=== PATIENT | female | born 1945 | race Caucasian/White ===

== ENCOUNTER 2024-05-11 17:30 | Observation (INO) ==
[2024-05-11 18:15] LABS: Basophils #(Absolute) Auto 0.1 (0.0-0.1); Basophils%(Percent) Auto 0.9 (0.1-0.85); Eosinophils#(Absolute)Auto 0.1 (0.0-0.2); Eosinophils%(Percent) Auto 0.9 % (0.4-2.8); Granulocytes % - Auto 59.9 % (47.8-71.3); Granulocytes#(Absolute)- Auto 3.6 (2.3-6.0); Hematocrit 35.7 % (35.9-46.7); Mean Corpuscular Volume 86.6 fl (81.0-93.7); Monocytes #(Absolute)- Auto 0.4 (1.1-3.1); Monocytes %(Percent)- Auto 5.8 % (3.6-9.8); Platelet Count 200 K/uL (152-353); White Blood Count 6.1 K/uL (4.3-9.3)
--- NOTE | 2024-05-11 18:17 | Emergency Department Note ---
HPI - Neuro Symptoms/Deficit General Chief Complaint: General Complaint Stated Complaint: slurry speech, mouth drooping Time Seen by Provider: 05/11/24 18:12 Source: patient and family Mode of arrival: walk-in Limitations: no limitations History of Present Illness HPI Narrative: 78 y/o CF presents to the ED tonight, accompanied by her director design's and spouse, with c/o sudden onset of slurred speech and drooping of L side of mouth. Symptoms were noted by her when they were at [facility]. Symptoms reportedly lasted ~ 2 minutes and had resolved CORPORATE DEVELOPMENT ANALYST to ED. Pt reports no current symptoms. Onset (ago): minute(s) (10 min CORPORATE DEVELOPMENT ANALYST) Time: 17:25 Last Observed Normal: 17:25 Timing confirmed by: Reports spouse Location: Reports speech and left face History of same: Yes (1 episode s/p CABG 1 year ago, described as ataxic gait; CT head was neg) Severity: mild Quality: Reports weak and other (slurred speech, last 2 minutes) Relieving factors: Reports none Exacerbating factors: Reports none Context: Reports sudden onset On Anticoagulants: No (81mg ASA daily) Associated symptoms: Reports denies other symptoms Treatments Prior to Arrival: Reports none Related Data Home Medications Medication Instructions Recorded Confirmed atorvastatin 40 mg tablet 40 mg PO DAILY 05/11/24 05/11/24 duloxetine 30 mg capsule,delayed 30 mg PO DAILY 05/11/24 05/11/24 release duloxetine 60 mg capsule,delayed 60 mg PO DAILY 05/11/24 05/11/24 release isosorbide mononitrate 30 mg 30 mg PO DAILY 05/11/24 05/11/24 tablet,extended release 24 hr levothyroxine 100 mcg tablet 100 mcg PO DAILY 05/11/24 05/11/24 (Synthroid) meloxicam 7.5 mg tablet 7.5 mg PO DAILY 05/11/24 05/11/24 metoprolol succinate 25 mg 25 mg PO BID 05/11/24 05/11/24 tablet,extended release 24 hr ropinirole 4 mg tablet 4 mg PO BID 05/11/24 05/11/24 valsartan 160 mg tablet 160 mg PO DAILY 05/11/24 05/11/24 Allergies Allergy/AdvReac Type Severity Reaction Status Date / Time No Known Drug Allergies Allergy Verified 05/11/24 17:44 Review of Systems Status of ROS 10 or more systems reviewed and unremark able except as noted in history and below Constitutional Denies: fever, chills or fatigue Eyes Denies: change in vision, blurry vision, blind spots, light sensitivity, eye discomfort, eye discharge or seeing flashes Ears, nose, mouth, and throat Denies: throat pain, neck pain, throat swelling, difficulty swallowing, hoarseness, swelling of lips/tongue, dry mouth, ear pain or nasal congestion Cardiovascular Denies: chest pain, palpitations, edema, swelling of feet/ankles or lightheadedness Respiratory Denies: shortness of breath, cough, wheezing, pain on inspiration or chest congestion Gastrointestinal Reports: other (denies dark, tarry stool); Denies: abdominal pain, nausea, vomiting, diarrhea, constipation, change in bowel habits or change in stool character Genitourinary Denies: painful urination, urinary frequency, urinary urgency, urinary incontinence, blood in urine, difficulty voiding, decreased urine ouput or vaginal discharge Musculoskeletal Denies: back pain, neck pain, extremity pain, extremity swelling, joint pain or limited range of motion Integumentary/Breast Denies: rash, itching, changes in skin color or jaundice Neurological Reports: numbness in extremities (L arm), slurred speech, difficulty communicating thoughts and other (facial droop); Denies: headache, weakness in extremities, lack of coordination, dizziness, behavioral changes or seizure-like activity Psychiatric Denies: anxiety or difficulty concentrating Endocrine Denies: excessive urination, excessive thirst or fatigue Hematologic/Lymphatic Denies: easy bruising or easy bleeding Allergic/Immunologic Denies: hives, throat swelling, tongue swelling or facial swelling PFSH [facility] Medical History Thyroid disease HTN (hypertension) CAD (coronary artery disease) Surgical History (Updated 05/11/24 @ 19:42 by Alejandra Cherry APRN) History of hysterectomy Hx of CABG Social History (Updated 05/11/24 @ 19:42 by Alejandra Cherry APRN) Smoking status: never smoker Within the past year, how often did you have a drink containing alcohol: never Score interpretation: A score less than 3 is consistent with normal alcohol consumption. Non-prescribed substance use: denies use Exam Constitutional: normal general appearance, no apparent distress, abnormal body habitus (overweight), no limitations and alert Vital Signs - 24 hr 05/11/24 17:36 Temperature 98.5 F Pulse Rate 85 Respiratory Rate 20 Blood Pressure 119/80 Pulse Oximetry 99 Oxygen Delivery Me thod Room Air HENMT: normocephalic, head/scalp atraumatic, hearing grossly normal bilaterally, external ears normal, TMs normal bilaterally, nasal mucous membranes normal, external nose normal, oral mucous membranes abnormal (dry), oropharynx normal and dentition normal Eyes: PERRL, EOMs intact bilaterally, conjunctivae normal, no scleral icterus, normal visual [place] by confrontation, alignment normal, periorbital findings normal and no nystagmus Neck/C-Spine: visual inspection normal, trachea midline, cervical spine nontender, cervical full ROM noted, supple, no meningeal signs and no carotid bruits Lymph: no lymphadenopathy noted Chest: inspection of chest normal and palpation of chest normal Respiratory: breath sounds equal bilaterally, normal respiratory effort, clear to auscultation bilaterally, no wheezes, no rales and no use of accessory muscles Cardiovascular: normal heart rate noted, regular rhythm noted, no gallop, no murmur and peripheral pulses 2+ throughout Gastrointestinal: abdomen normal to inspection, abdomen soft to palpation, nontender to palpation, nondistended, normoactive bowel sounds, no hepatosplenomegaly and no masses Genitourinary: no CVA tenderness and bladder normal to palpation Back/Pelvis: spine normal to inspection, no thoracic spine tenderness, no lumbar spine tenderness, thoracic spine ROM normal, lumbar spine ROM normal and straight leg raise negative bilaterally Extremities: normal to inspection, normal to palpation, no tenderness, full ROM and no deformity Neurology: rivet driver II-XII intact, no movement abnormality noted, no focal motor deficit noted, no sensory deficits noted, deep tendon reflexes 2+ bilaterally, gait normal, speech normal, coordination normal, no pronator drift noted, no fasciculations noted and GCS normal Psychiatry: mental status grossly normal, oriented x3, thought process normal, cooperative and affect normal Skin: skin color normal, no rash, no lesions, no ecchymosis noted, no wounds, no lacerations, skin turgor normal and no jaundice Course Vital Signs Vital signs: Vital Signs Temperature 98.5 F 05/11/24 17:36 Pulse Rate 85 05/11/24 17:36 Respiratory Rate 20 05/11/24 17:36 Blood Pressure 119/80 05/11/24 17:36 Pulse Oximetry 99 05/11/24 17:36 Oxygen Delivery Method Room Air 05/11/24 17:36 Temperature 98.5 F 05/11/24 17:36 Pulse Rate 85 05/11/24 17:36 Respiratory Rate 20 05/11/24 17:36 Blood Pressure 119/80 05/11/24 17:36 Pulse Oximetry 99 05/11/24 17:36 Oxygen Delivery Method Room Air 05/11/24 17:36 MDM - Neuro Symptoms/Deficit MDM Narrative Medical decision making narrative: Labs are noted to be essentially unremarkable except for patient does have a UTI and is slightly dehydrated. Patient with 1 episode of slurred speech and left- sided facial drooping that lasted approximately 2 minutes and occurred approximately 10 minutes prior to arrival and a second episode of left arm paresthesia from shoulder down to fingertips that began at approximately 1908 and resolved about 193, lasting a total of 23 minutes. During second episode, nurse attempting to REACH patient when her symptoms resolved. Case discussed with Dr. Scott (neurology with REACH) who recommends admission, Lipitor 80 mg daily, ASA 81mg daily, MRI/MRA brain and bilateral carotid doppler ultrasound. Will admit for TIA. I have discussed the clinical case, including pertinent p ositives and negatives with Tana (JADA), and the need for further testing/observation in the inpatient arena. I have made the patient and family aware of the current disposition plan and they are in agreement. Differential Diagnosis Differential diagnosis: Likely carpal tunnel syndrome, convulsions, delirium, subarachnoid hemorrhage, peripheral neuropathy, cerebrovascular accident, multiple sclerosis, transient cerebral ischemia and other (dementia, sepsis) Medical Records Attestation: I reviewed the patient's medical records. Lab Data Attestation: I reviewed the patient's lab results. Labs: Lab Results 05/11/24 05/11/24 Range/Units 18:05 19:05 WBC 6.1 (4.3-9.3) K/uL RBC 4.1 (4.00-5.50) M/uL Hgb 12.0 L (12.5-15.8) gm/dL Hct 35.7 L (35.9-46.7) % MCV 86.6 (81.0-93.7) fl MCH 29.1 (27.6-32.2) pg MCHC 33.6 (33.1-35.3) g/dl RDW 14.1 (11.4-14.2) % Plt Count 200 (152-353) K/uL MPV 8.2 (6.9-10.8) fl Gran % 59.9 (47.8-71.3) % Lymph % (Auto) 32.5 (20.0-43.0) % Emery % (Auto) 5.8 (3.6-9.8) % Eos % (Auto) 0.9 (0.4-2.8) % Baso % (Auto) 0.9 H (0.1-0.85) Lymph # (Auto) 2.0 (1.1-3.1) Emery # (Auto) 0.4 L (1.1-3.1) Eos # (Auto) 0.1 (0.0-0.2) Baso # (Auto) 0.1 (0.0-0.1) Absolute Gran (auto) 3.6 (2.3-6.0) Sodium 140 (136-145) mmol/L Potassium 4.3 (3.6-5.2) mmol/L Chloride 100.0 (98-107) mmol/L Carbon Dioxide 29 (21-32) mmol/L Anion Gap 11.0 (4-14) mEq/L BUN 24 H (7-18) mg/dL Creatinine 0.8 (0.6-1.3) mg/dL Estimated GFR 76.3 (>59.9) Glucose 84 (70-110) mg/dL Calcium 9.0 (8.5-10.1) mg/dL Total Bilirubin 0.72 (0.0-1.0) mg/dL AST 22 (15-37) U/L ALT 26 L (30-65) U/L Alkaline Phosphatase 183 H (50-136) U/L Total Protein 7.5 (6.4-8.2) g/dL Albumin 4.0 (3.4-5.0) g/dL Urine Color Yellow (STRAW/YELL.) Urine Appearance Clear (CLEAR) Ur Specific [place] 1.010 (1.001-1.035) Urine Protein Negative (NEGATIVE) Urine Glucose (UA) Normal (NORMAL) Urine Ketones Negative (NEGATIVE) Urine Occult Blood Negative (NEG - TRACE) Urine Nitrite Negative (NEGATIVE) Urine Bilirubin Negative (NEGATIVE) Urine Urobilinogen Normal (NORMAL) Ur Leukocyte Esterase Positive (NEGATIVE) Fluid pH 7.0 (5 - 9) Imaging Data Imaging ordered: CT scan - head (without contrast) Attestation: I have reviewed the pertinent imaging results. Radiologist's impression: EXAM: CT HEAD/BRAIN WO CON HISTORY: SLURRED SPEECH, FACIAL DROOPING BOTH RESOLVEDSLURRED SPEECH, FACIAL DROOPING BOTH RESOLVED; CV/NB COMPARISON: None. TECHNIQUE: Axial non-contrast images of the head were obtained with coronal and sagittal reformats provided. Radiation dose: 1099.8 mGy-cm total DLP FINDINGS: No abnormal areas of acute attenuation in the brain parenchyma. Encephalomalacia in the left cerebellar hemisphere. Akbar-white differentiation remains intact. No intracranial, extra-axial, fluid collection. No hemorrhage. Periventricular chronic microvascular disease. No mass, mass effect or midline shift. Age related brain parenchymal global atrophy. No ventriculomegaly. No acute fracture. Sinuses are well aerated. Mastoid air cells are well aerated. Globes and intra-orbital contents are unremarkable. IMPRESSION: No acute intracranial abnormality identified. THIS IS AN ELECTRONICALLY VERIFIED FINAL REPORT 05/11/2024 6:10 PM - Electronically signed by Christian Ruff MD ECG Data ECG interpretation date: 05/11/24 ECG interpretation time: 17:50 Prior ECG tracings: not available for review Interpretation: Normal sinus rhythm Rate 81 Multiple PVCs and PAC's Normal QRS Normal ST-T waves Borderline prolonged QT interval Critical Care Time Critical Care Time Critical Care Time: Yes Total Critical Care Time: 50 Attestation: continuous cardiac monitoring, and neuro checks. Attempted to REACH pt when symptoms resolved. Neuro consult with Dr Scott. Consult with UR. Admission orders entered. Discharge Plan Discharge Patient Disposition: Admitted As Observation Condition: Stable Clinical Impression: TIA (transient ischemic attack), Paresthesia of left arm, Slurred speech, Facial droop, Acute dehydration Time of Disposition: 19:38
[2024-05-11 18:40] LABS: Potassium 4.3 mmol/L (3.6-5.2)
[2024-05-11 20:06] LABS: Urine Appearance CLEAR (CLEAR); Urine Blood NEGATIVE (NEG - TRACE); Urine Color YELLOW (STRAW/YELL.); Urine Urobilinogen Normal (NORMAL)
[2024-05-11 20:18] LABS: Urine Amorphous Sediment Negative (Negative); Urine Yeast Negative (Negative)
[2024-05-11] MEDS ORDERED: ACETAMINOPHEN 325 MG TABLET PO PRN (21:31)
[2024-05-11] MEDS ORDERED: ONDANSETRON HCL/PF 4 MG/2 ML VIAL INJ PRN (21:31)
[2024-05-11] MEDS: cephALEXin 500 MG CAPSULE PO SCH (22:21)
[2024-05-11] MEDS: ATORVASTATIN CALCIUM 40 MG TABLET PO SCH (22:21)
[2024-05-11] MEDS: METOPROLOL SUCCINATE 25 MG TAB.ER.24H PO SCH (22:21)
[2024-05-11] MEDS: IBUPROFEN 400 MG TABLET PO PRN (22:40)
[2024-05-11] MEDS: 0.9 % SODIUM CHLORIDE 500 ML IV SCH (23:05)
[2024-05-11] MEDS: 0.9 % SODIUM CHLORIDE 1000 ML 1,000 ML IV SCH (23:06)
[2024-05-11] MEDS: VALSARTAN 160 MG PO SCH (23:06)
[2024-05-12 04:43] LABS: Basophils%(Percent) Auto 0.8 (0.1-0.85); Eosinophils%(Percent) Auto 0.7 % (0.4-2.8); Granulocytes % - Auto 54.5 % (47.8-71.3); Granulocytes#(Absolute)- Auto 3.3 (2.3-6.0); Hematocrit 31.1 % (35.9-46.7); Mean Corpuscular Volume 85.6 fl (81.0-93.7); Monocytes #(Absolute)- Auto 0.4 (1.1-3.1); Monocytes %(Percent)- Auto 6.4 % (3.6-9.8); Platelet Count 178 K/uL (152-353); White Blood Count 6.1 K/uL (4.3-9.3)
[2024-05-12] MEDS: LEVOTHYROXINE SODIUM 100 MCG TABLET PO SCH (09:12)
[2024-05-12] MEDS: ASPIRIN 81 MG TAB.CHEW PO SCH (09:12)
[2024-05-12] MEDS: LOSARTAN POTASSIUM 50 MG TABLET PO SCH (09:12)
[2024-05-12] MEDS: ISOSORBIDE MONONITRATE 30 MG TAB.ER.24H PO SCH (09:12)
[2024-05-12] MEDS: ENOXAPARIN SODIUM 100 MG/ML SYRINGE SUBQ SCH (10:33)
[2024-05-12] MEDS: PANTOPRAZOLE SODIUM 40 MG TABLET.DR PO SCH (10:34)
[2024-05-12] MEDS: CLOPIDOGREL BISULFATE 75 MG TABLET PO SCH (15:49)
[2024-05-12] MEDS: carvediloL 6.25 MG TABLET PO SCH (21:13)
[2024-05-13 04:36] LABS: Basophils%(Percent) Auto 0.7 (0.1-0.85); Eosinophils#(Absolute)Auto 0.1 (0.0-0.2); Eosinophils%(Percent) Auto 1.3 % (0.4-2.8); Granulocytes % - Auto 51.6 % (47.8-71.3); Granulocytes#(Absolute)- Auto 2.6 (2.3-6.0); Hematocrit 33.6 % (35.9-46.7); Mean Corpuscular Volume 85.4 fl (81.0-93.7); Monocytes #(Absolute)- Auto 0.3 (1.1-3.1); Monocytes %(Percent)- Auto 6.7 % (3.6-9.8); Platelet Count 165 K/uL (152-353); White Blood Count 5.1 K/uL (4.3-9.3)
[2024-05-13 05:41] LABS: Potassium 4.1 mmol/L (3.6-5.2)
[2024-05-13 08:17] VITALS: RESP 19
[2024-05-13] MEDS: CHOLECALCIFEROL 1,000 UNITS TABLET (25 MCG) PO SCH (09:21)
[2024-05-13] MEDS: GLIMEPIRIDE 2 MG TABLET PO SCH (09:21)
[2024-05-13] MEDS: ASPIRIN 81 MG TABLET.DR PO SCH (09:22)
--- NOTE | 2024-05-13 10:11 | History & Physical Report ---
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 Symptoms were noted by her when they were at [employer]. Symptoms reportedly lasted ~ 2 minutes and had resolved [employer] to ED. Pt reports no current symptoms. Patient was admitted to med/surg for observation and treatment. Review of Systems Status of ROS 10 or more systems reviewed and unremark able except as noted in history and below Constitutional Denies: fever, chills or fatigue Eyes Denies: change in vision, blurry vision, blind spots, light sensitivity, eye discomfort, eye discharge or seeing flashes Ears, nose, mouth, and throat Denies: throat pain, neck pain, throat swelling, difficulty swallowing, hoarseness, swelling of lips/tongue, dry mouth, ear pain or nasal congestion Cardiovascular Denies: chest pain, palpitations, edema, swelling of feet/ankles, lightheadedness or shortness of breath with exertion Respiratory Denies: shortness of breath, cough, wheezing, pain on inspiration or chest congestion Gastrointestinal Reports: other (denies dark, tarry stool); Denies: abdominal pain, nausea, vomiting, diarrhea, constipation, difficulty swallowing, change in bowel habits or change in stool character Genitourinary Denies: painful urination, urinary frequency, urinary urgency, urinary incontinence, blood in urine, difficulty voiding, decreased urine ouput or vaginal discharge Musculoskeletal Denies: back pain, neck pain, extremity pain, extremity swelling, joint pain or limited range of motion Integumentary/Breast Denies: rash, itching, changes in skin color or jaundice Neurological Reports: numbness in extremities (L arm), slurred speech, difficulty communicating thoughts and other (facial droop); Denies: headache, weakness in extremities, lack of coordination, dizziness, behavioral changes or seizure-like activity Psychiatric Denies: anxiety or difficulty concentrating Endocrine Denies: excessive urination, excessive thirst or fatigue Hematologic/Lymphatic Denies: easy bruising or easy bleeding Allergic/Immunologic Denies: hives, throat swelling, tongue swelling, facial swelling or wheezing [facility] Medical History (Updated 05/13/24 @ 11:09 by Monika Rosenthal DO) Restless leg Diabetes type 2 with atherosclerosis of arteries of extremities Thyroid disease HTN (hypertension) CAD (coronary artery disease) Surgical History (Updated 05/11/24 @ 19:42 by Alejandra Cherry APRN) History of hysterectomy Hx of CABG Social History (Updated 05/11/24 @ 19:42 by Alejandra Cherry APRN) Smoking status: never smoker Within the past year, how often did you have a drink containing alcohol: never Score interpretation: A score less than 3 is consistent with normal alcohol consumption. Non-prescribed substance use: denies use Problems where you live: no known problems Highest level of school completed/degree received: College Meds Home Medications and Allergies Home Medications Medication Instructions Recorded Confirmed Type atorvastatin 40 mg tablet 40 mg PO DAILY 05/11/24 05/11/24 History duloxetine 30 mg capsule,delayed 30 mg PO DAILY 05/11/24 05/11/24 History release duloxetine 60 mg capsule,delayed 60 mg PO DAILY 05/11/24 05/11/24 History release isosorbide mononitrate 30 mg 30 mg PO DAILY 05/11/24 05/11/24 History tablet,extended release 24 hr levothyroxine 100 mcg tablet 100 mcg PO DAILY 05/11/24 05/11/24 History (Synthroid) meloxicam 7.5 mg tablet 7.5 mg PO DAILY 05/11/24 05/11/24 History ropinirole 4 mg tablet 4 mg PO BID 05/11/24 05/11/24 History valsartan 160 mg tablet 240 mg PO DAILY 05/11/24 05/12/24 History aspirin 81 mg capsule 81 mg PO DAILY 05/12/24 05/12/24 History carvedilol 12.5 mg tablet 12.5 mg PO Q12H 05/12/24 05/12/24 History cholecalciferol (vitamin D3) 25 25 mcg PO DAILY 05/12/24 05/12/24 History mcg (1,000 unit) capsule (Vitamin D3) coenzyme Q10 10 mg capsule (Co 10 mg PO DAILY 05/12/24 05/12/24 History Q-10) glimepiride 4 mg tablet 4 mg PO DAILY 05/12/24 05/12/24 History vit C 250 mg-vit E 200 unit-zinc 2 cap PO DAILY 05/12/24 05/12/24 History ox 12.5 qj-gkmiom-nvapit-zeax capsule cephalexin 500 mg capsule 500 mg PO BID uti #8 caps 05/13/24 Rx Allergies Allergy/AdvReac Type Severity Reaction Status Date / Time No Known Drug Allergies Allergy Verified 05/11/24 17:44 Exam Exam: Patient laying in Pelaez's position upon entering room for exam. Constitutional: normal general appearance, no apparent distress, abnormal body habitus (overweight), no limitations and alert Vital Signs - 24 hr 05/11/24 17:36 05/11/24 17:48 05/11/24 18:15 Temperature 98.5 F Pulse Rate 85 82 78 Pulse Rate [Bilate ral] Respiratory Rate 20 20 21 Blood Pressure 119/80 167/50 141/66 Blood Pressure [Le ft Radial Artery] Pulse Oximetry 99 96 [facility] 05/11/24 18:30 05/11/24 18:45 05/11/24 19:00 Temperature Pulse Rate 81 78 74 Pulse Rate [Bilate ral] Respiratory Rate 20 19 20 Blood Pressure 147/70 148/63 158/58 Blood Pressure [[place] ft Radial Artery] Pulse Oximetry 99 99 99 [facility] Room Air 05/11/24 19:15 05/11/24 19:30 05/11/24 19:45 Temperature Pulse Rate 79 82 76 Pulse Rate [Bilate ral] Respiratory Rate 20 18 19 Blood Pressure 160/103 176/68 153/57 Blood Pressure [[place] ft Radial Artery] Pulse Oximetry 99 98 [facility] Room Air 05/11/24 20:00 05/11/24 20:15 05/11/24 20:30 Temperature Pulse Rate 73 79 86 Pulse Rate [Bilate ral] Respiratory Rate 18 18 19 Blood Pressure 136/51 147/84 168/57 Blood Pressure [Le ft Radial Artery] Pulse Oximetry 97 95 96 [facility] Room Air 05/11/24 20:45 05/11/24 21:00 05/11/24 21:00 Temperature 98.5 F Pulse Rate 84 84 84 Pulse Rate [Bilate ral] Respiratory Rate 19 19 19 Blood Pressure 171/55 156/49 156/49 Blood Pressure [Le ft Radial Artery] Pulse Oximetry 97 93 L 93 L [facility] 05/12/24 00:00 05/12/24 03:46 05/12/24 08:00 Temperature 98.6 F 98.3 F 97.9 F Pulse Rate Pulse Rate [Bilate ral] 79 76 78 Respiratory Rate 19 19 18 Blood Pressure Blood Pressure [Le ft Radial Artery] 104/62 128/58 136/57 Pulse Oximetry 98 97 95 Oxygen Delivery [facility] thod Room Air Room Air Room Air 05/12/24 09:12 05/12/24 12:00 Temperature Pulse Rate Pulse Rate [Bilate ral] 74 Respiratory Rate 18 Blood Pressure 136/57 Blood Pressure [Le ft Radial Artery] 118/56 Pulse Oximetry 98 Oxygen Delivery [facility] thod Room Air HENMT: normocephalic, head/scalp atraumatic, hearing grossly normal bilaterally, external ears normal, TMs normal bilaterally, nasal mucous membranes normal, external nose normal, oral mucous membranes abnormal (dry), oropharynx normal and dentition normal Eyes: PERRL, EOMs intact bilaterally, conjunctivae normal, no scleral icterus, normal visual [place] by confrontation, alignment normal, periorbital findings normal and no nystagmus Neck/C-Spine: visual inspection normal, trachea midline, cervical spine nonten chip, cervical full ROM noted, supple, no meningeal signs and no carotid bruits Lymph: no lymphadenopathy noted Chest: inspection of chest normal and palpation of chest normal Respiratory: breath sounds equal bilaterally, normal respiratory effort, clear to auscultation bilaterally, no wheezes, no rales and no use of accessory muscles Cardiovascular: normal heart rate noted, regular rhythm noted, no gallop, no murmur and peripheral pulses 2+ throughout Gastrointestinal: abdomen normal to inspection, abdomen soft to palpation, nontender to palpation, nondistended, normoactive bowel sounds, no hepatosplenomegaly and no masses Genitourinary: no CVA tenderness and bladder normal to palpation Back/Pelvis: spine normal to inspection, no thoracic spine tenderness, no lumbar spine tenderness, thoracic spine ROM normal, lumbar spine ROM normal and straight leg raise negative bilaterally Extremities: normal to inspection, normal to palpation, no tenderness, full ROM and no deformity Neurology: 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 II-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, no movement abnormality noted, no focal motor deficit noted, no sensory deficits noted, deep tendon reflexes 2+ bilaterally, gait normal, speech normal, coordination normal, no pronator drift noted, no fasciculations noted and GCS normal Psychiatry: mental status grossly normal, oriented x3, thought process normal, cooperative and affect normal Skin: skin color normal, no rash, no lesions, no ecchymosis noted, no wounds, no lacerations, skin turgor normal and no jaundice Assessment and Plan Assessment and Plan (1) TIA (transient ischemic attack): Code(s): G45.9 - Transient cerebral ischemic attack, unspecified (2) UTI (urinary tract infection): Qualifiers: Urinary tract infection type: acute pyelonephritis Qualified Code(s): N10 - Acute pyelonephritis Code(s): N39.0 - Urinary tract infection, site not specified (3) Thyroid disease: Code(s): E07.9 - Disorder of thyroid, unspecified (4) Diabetes type 2 with atherosclerosis of arteries of extremities: Code(s): E11.51 - Type 2 diabetes mellitus with diabetic peripheral angiopathy without gangrene; I70.209 - Unspecified atherosclerosis of [place] arteries of extremities, unspecified extremity (5) CAD (coronary artery disease): Qualifiers: Coronary Disease-Associated Artery/Lesion type: unspecified vessel or lesion type [place] vs. transplanted heart: [place] heart Associated angina: with stable angina Qualified Code(s): I25.118 - Atherosclerotic heart disease of [place] coronary artery with other forms of angina pectoris Code(s): I25.10 - Atherosclerotic heart disease of [place] coronary artery without angina pectoris (6) Essential tremor: Code(s): G25.0 - Essential tremor (7) HTN (hypertension): Qualifiers: Hypertension type: primary hypertension Qualified Code(s): I10 - Essential (primary) hypertension Code(s): I10 - Essential (primary) hypertension (8) Restless leg: Code(s): G25.81 - Restless legs syndrome Plan Isosorbide Mononitrate 30 mg PO Daily Levothyroxine Sodium 100 mcg PO Daily Metoprolol Succinate 25 mg PO BID Atorvastatin Calcium 80 mg PO Bedtime Cephalexin 500 mg PO BID Losartan Potassium 100 mg PO Daily Pantoprazole Sodium 40 mg PO Daily Enoxaparin Sodium 80 mg SUBQ Q12H Aspirin 81 mg PO Daily Carvedilol 12.5 mg PO Q12H Cholecalciferol 1,000 unit PO Daily Glimepiride 4 mg PO Daily Vit C-E-Zinc Vb-Cong-Zla-Zeax 2 cap PO Daily Clopidogrel Bisulfate 75 mg PO Daily Acetaminophen 650 mg PO Q6H PRN Ondansetron Hcl 4 mg INJ Q6H PRN Results Labs Labs: CBC WBC 6.1 K/uL (4.3-9.3) 05/12/24 04:35 RBC 3.6 M/uL (4.00-5.50) L 05/12/24 04:35 Hgb 10.8 gm/dL (12.5-15.8) L 05/12/24 04:35 Hct 31.1 % (35.9-46.7) L 05/12/24 04:35 MCV 85.6 fl (81.0-93.7) 05/12/24 04:35 MCH 29.6 pg (27.6-32.2) 05/12/24 04:35 MCHC 34.6 g/dl (33.1-35.3) 05/12/24 04:35 RDW 14.0 % (11.4-14.2) 05/12/24 04:35 Plt Count 178 K/uL (152-353) 05/12/24 04:35 MPV 8.2 fl (6.9-10.8) 05/12/24 04:35 Gran % 54.5 % (47.8-71.3) 05/12/24 04:35 Lymph % (Auto) 37.6 % (20.0-43.0) 05/12/24 04:35 [place] % (Auto) 6.4 % (3.6-9.8) 05/12/24 04:35 Eos % (Auto) 0.7 % (0.4-2.8) 05/12/24 04:35 Baso % (Auto) 0.8 (0.1-0.85) 05/12/24 04:35 Lymph # (Auto) 2.3 (1.1-3.1) 05/12/24 04:35 [place] # (Auto) 0.4 (1.1-3.1) L 05/12/24 04:35 Eos # (Auto) 0.0 (0.0-0.2) 05/12/24 04:35 Baso # (Auto) 0.0 (0.0-0.1) 05/12/24 04:35 Absolute Gran (auto) 3.3 (2.3-6.0) 05/12/24 04:35 BMP Sodium 139 mmol/L (136-145) 05/12/24 04:35 Potassium 4.0 mmol/L (3.6-5.2) 05/12/24 04:35 Chloride 103.0 mmol/L (98-107) 05/12/24 04:35 Carbon Dioxide 29 mmol/L (21-32) 05/12/24 04:35 Anion Gap 7.0 mEq/L (4-14) 05/12/24 04:35 BUN 24 mg/dL (7-18) H 05/12/24 04:35 Creatinine 1.0 mg/dL (0.6-1.3) 05/12/24 04:35 Estimated GFR 58.4 (>59.9) 05/12/24 04:35 Glucose 71 mg/dL (70-110) 05/12/24 04:35 Calcium 8.5 mg/dL (8.5-10.1) 05/12/24 04:35 Total Bilirubin 0.54 mg/dL (0.0-1.0) 05/12/24 04:35 AST 19 U/L (15-37) 05/12/24 04:35 ALT 23 U/L (30-65) L 05/12/24 04:35 Alkaline Phosphatase 153 U/L (50-136) H 05/12/24 04:35 Total Protein 6.2 g/dL (6.4-8.2) L 05/12/24 04:35 Albumin 3.2 g/dL (3.4-5.0) L 05/12/24 04:35 Liver Function Total Bilirubin 0.54 mg/dL (0.0-1.0) 05/12/24 04:35 AST 19 U/L (15-37) 05/12/24 04:35 ALT 23 U/L (30-65) L 05/12/24 04:35 Alkaline Phosphatase 153 U/L (50-136) H 05/12/24 04:35 Total Protein 6.2 g/dL (6.4-8.2) L 05/12/24 04:35 Albumin 3.2 g/dL (3.4-5.0) L 05/12/24 04:35 Urine Urine Color Yellow (STRAW/YELL.) 05/11/24 19:05 Urine Appearance Clear (CLEAR) 05/11/24 19:05 Ur Specific [place] 1.010 (1.001-1.035) 05/11/24 19:05 Urine Protein Negative (NEGATIVE) 05/11/24 19:05 Urine Glucose (UA) Normal (NORMAL) 05/11/24 19:05 Urine Ketones Negative (NEGATIVE) 05/11/24 19:05 Urine Occult Blood Negative (NEG - TRACE) 05/11/24 19:05 Urine Nitrite Negative (NEGATIVE) 05/11/24 19: Urine Bilirubin Negative (NEGATIVE) 05/11/24 19:05 Urine Urobilinogen Normal (NORMAL) 05/11/24 19:05 Ur Leukocyte Esterase Positive (NEGATIVE) 05/11/24 19:05 Imaging Imaging ordered: CT scan - head, MRI - head and other (Head MRA) Radiologist's impression: CT HEAD/BRAIN WO CON HISTORY: SLURRED SPEECH, FACIAL DROOPING BOTH RESOLVEDSLURRED SPEECH, FACIAL DROOPING BOTH RESOLVED; CV/NB COMPARISON: None. TECHNIQUE: Axial non-contrast images of the head were obtained with coronal and sagittal reformats provided. Radiation dose: 1099.8 mGy-cm total DLP FINDINGS: No abnormal areas of acute attenuation in the brain parenchyma. Encephalomalacia in the left cerebellar hemisphere. Akbar-white differentiation remains intact. No intracranial, extra-axial, fluid collection. No hemorrhage. Periventricular chronic microvascular disease. No mass, mass effect or midline shift. Age related brain parenchymal global atrophy. No ventriculomegaly. No acute fracture. Sinuses are well aerated. Mastoid air cells are well aerated. Globes and intra-orbital contents are unremarkable. IMPRESSION: No acute intracranial abnormality identified. MRI of the brain without contrast HISTORY: Transient ischemic attack COMPARISON: CT of the brain without contrast May 11, 2024 TECHNIQUE: Multisequence, multi planar MR imaging of the brain was performed without contrast. FINDINGS: There is a punctate focus of diffusion restriction in the right frontoparietal watershed region on the diffusion-weighted sequence. There is no confirmatory signal dropout on the ADC map. There is T2 hyperintensity noted on the coronal sequence in this area and a small focus of gliosis is favored with T2 shine through. Otherwise, no diffusion restriction to suggest acute or subacute ischemia. The pituitary region appears appropriate. The optic chiasm is unremarkable. There is mild age-related generalized volume loss. Moderate microvascular ischemic changes are present in the periventricular white matter bilaterally. Axial gradient echo images demonstrate a focus of mineralization or hemosiderin deposition in the right temporal lobe. No hemorrhage or extra-axial collection. Appropriate ventricular size. No sinus air-fluid levels. The globes are symmetric. IMPRESSION: No sign of acute or subacute ischemia. Chronic brain findings including atrophy and microvascular ischemic change. MR ANGIO HEAD WO CON HISTORY: TIATIA; CBN COMPARISON: None. TECHNIQUE: MRA images were without the administration of intravenous contrast utilizing a routine [id number] protocol.. 3D reconstructed images were created for further characterization by the technologist. FINDINGS: Anterior Circulation: Right internal carotid artery: Unremarkable. Intracranial segment is patent with no significant stenosis. No aneurysm. Right middle cerebral artery: No occlusion or significant stenosis. No aneurysm. Right anterior cerebral artery: Unremarkable. No occlusion or significant stenosis. No aneurysm. Left internal carotid artery: Unremarkable. Intracranial segment is patent with no significant stenosis. No aneurysm. Left middle cerebral artery: Unremarkable. No occlusion or significant stenosis. No aneurysm. Left anterior cerebral artery: Unremarkable. No occlusion or significant stenosis. No aneurysm. Posterior Circulation: Right vertebral artery: Unremarkable. No occlusion or significant stenosis. No aneurysm. Left vertebral artery: Unremarkable. No occlusion or significant stenosis. No aneurysm. Basilar artery: Unremarkable. No occlusion or significant stenosis. No aneurysm. Right posterior cerebral artery: Unremarkable. No occlusion or significant anderson nosis. No aneurysm. Left posterior cerebral artery: Unremarkable. No occlusion or significant stenosis. No aneurysm. IMPRESSION: No clinically significant stenosis, occlusion or aneurysm identified involving the intracranial arterial structures.
[2024-05-13] MEDS: VIT C E ZINC OX COPP LUT ZEAX PO SCH (11:15)
[2024-05-13 12:16] VITALS: BP 155/58; PULSE 59; TEMP 97.4
--- NOTE | 2024-05-16 10:56 | Discharge Summary ---
DS: Providers Provider Date of admission: 05/11/24 20:16 Primary care physician: Domenic Downs Admitting clinician: Alejandra Cherry Attending physician on admission: Monika Rosenthal Consults: 05/12/24 09:27 Consult to Occupational Therapy Routine Comment: Consulting Provider: Reason for consultation: tia and left arm numbness Physician Instructions: treat and evaluate Consult to Physical Therapy Routine Comment: Consulting Provider: Reason for consultation: tia and left arm numbness Physician Instructions: treat and evaluate Attending physician on discharge: Monika Rosenthal Discharging clinician: Monika Rosenthal Anticipated date of discharge: 05/13/24 DS: Diagnosis Discharge Diagnosis (1) TIA (transient ischemic attack): (2) UTI (urinary tract infection): Qualifiers: Urinary tract infection type: acute pyelonephritis Qualified Code(s): N10 - Acute pyelonephritis (3) Thyroid disease: (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 transplanted heart: [place] heart Qualified Code(s): I25.118 - Atherosclerotic heart disease of [place] coronary artery with other forms of angina pectoris (6) Essential tremor: (7) HTN (hypertension): Qualifiers: Hypertension type: primary hypertension Qualified Code(s): I10 - Essential (primary) hypertension (8) Restless leg: Plan Sodium Chloride 1,000 mls @ 75 mls/hr IV CONT Valsartan 160 mg PO Daily Sodium Chloride 500 mls @ 75 mls/hr IV CONT Ibuprofen 600 mg PO Q8H PRN Aspirin 81 mg PO Daily Isosorbide Mononitrate 30 mg PO Daily Levothyroxine Sodium 100 mcg PO Daily Metoprolol Succinate 25 mg PO BID Acetaminophen 650 mg PO Q6H PRN Ondansetron 4mg INJ Q6H PRN Atorvaxtatin Calcium 80 mg pO Bedtime Cephalexin 500 mg PO BID Losartan Potassium 100 mg PO Daily Pantoprazole Sodium 40 mg PO Daily Enoxaparin Sodium 80 mg SUBQ Q12H Carvedilol 12.5 mg PO Daily Glimepiride 4 mg PO Daily Vit C-E-Zinc Ah-Aczo-Piu-Zeax (2) cap PO Daily Clopidogrel Bisulfate 75 mg PO Daily Patient acute problems and symptoms have resolved and/or returned to patients baseline. Patient is ready to discharge home with follow up appointment for PCP in 5-7 days of discharge. DS: Summary Hospital Course Hospital Course: 78 y/o CF presents to the ED tonight, accompanied by her [employer] admin's and spouse, with c/o sudden onset of slurred speech and drooping of L side of mouth. Symptoms were noted by her when they were at [facility]. Symptoms reportedly lasted ~ 2 minutes and had resolved [employer] to ED. Pt reports no current symptoms. Patient was admitted to med/surg for observation and treatment. Patient responded to treatment plan well and hospital stay was uneventful. Acute symptoms and problems have resolved and/or returned to patient's baseline. Patient is ready to discharge home with a follow up appointment to see PCP in 5- 7 days of discharge. Status at Discharge Functional status at discharge: independent ambulation Overall status at discharge: patient is back to baseline Time Spent with Patient Time attestation: Total time spent providing and/or coordinating discharge services: Time spent: greater than 30 minutes Exam 2 Exam: Patient laying in Pelaez's position upon entering room for exam. Constitutional: normal general appearance, no apparent distress, abnormal body habitus (overweight), no limitations and alert Vital Signs - 24 hr 05/12/24 20:00 05/12/24 21:13 05/13/24 00:00 Temperature 97.6 F 98.0 F Pulse Rate 69 Pulse Rate [Bilate ral] 69 67 Respiratory Rate 18 19 Blood Pressure [Le ft Radial Artery] 146/71 150/62 Pulse Oximetry 97 [facility] 05/13/24 04:00 05/13/24 08:16 05/13/24 12:00 Temperature 97.9 F 98.2 F 97.4 F L Pulse Rate Pulse Rate [Bilate ral] 63 57 L 59 L Respiratory Rate 17 19 19 Blood Pressure [Le ft Radial Artery] 144/59 134/51 155/58 Pulse Oximetry 97 96 97 [facility] Room Air HENMT: normocephalic, head/scalp atraumatic, hearing grossly normal bilaterally, external ears normal, TMs normal bilaterally, nasal mucous membranes normal, external nose normal, oral mucous membranes normal, oropharynx normal and dentition normal Eyes: PERRL, EOMs intact bilaterally, conjunctivae normal, no scleral icterus, normal visual [place] by confrontation, alignment normal, periorbital findings normal and no nystagmus Neck/C-Spine: visual inspection normal, trachea midline, cervical spine nontender, cervical full ROM noted, supple, no meningeal signs and no carotid bruits Lymph: no lymphadenopathy noted Chest: inspection of chest normal and palpation of chest normal Respiratory: breath sounds equal bilaterally, normal respiratory effort, clear to auscultation bilaterally, no wheezes, no rales and no use of accessory muscles Cardiovascular: normal heart rate noted, regular rhythm noted, no gallop, no murmur and peripheral pulses 2+ throughout Gastrointestinal: abdomen normal to inspection, abdomen soft to palpation, nontender to palpation, nondistended, normoactive bowel sounds, no hepatosplenomegaly and no masses Genitourinary: no CVA tenderness and bladder normal to palpation Back/Pelvis: spine normal to inspection, no thoracic spine tenderness, no lumbar spine tenderness, thoracic spine ROM normal, lumbar spine ROM normal and straight leg raise negative bilaterally Extremities: normal to inspection, normal to palpation, no tenderness, full ROM and no deformity Neurology: security auditor II-XII intact, no movement abnormality noted, no focal motor deficit noted, no sensory deficits noted, deep tendon reflexes 2+ bilaterally, gait normal, speech normal, coordination normal, no pronator drift noted, no fasciculations noted and GCS normal Psychiatry: mental status grossly normal, oriented x3, thought process normal, cooperative and affect normal Skin: skin color normal, no rash, no lesions, no ecchymosis noted, no wounds, no lacerations, skin turgor normal and no jaundice DS: Data Data Completed and Pending Labs on day of discharge: Labs from last 24 hours 05/13/24 04:00 WBC 5.1 RBC 3.9 L Hgb 11.6 L Hct 33.6 L MCV 85.4 MCH 29.5 MCHC 34.6 RDW 14.1 Plt Count 165 MPV 8.3 Gran % 51.6 Lymph % (Auto) 39.7 [place] % (Auto) 6.7 Eos % (Auto) 1.3 Baso % (Auto) 0.7 Lymph # (Auto) 2.0 [place] # (Auto) 0.3 L Eos # (Auto) 0.1 Baso # (Auto) 0.0 Absolute Gran (auto) 2.6 Sodium 141 Potassium 4.1 Chloride 104.0 Carbon Dioxide 30 Anion Gap 7.0 BUN 22 H Creatinine 0.9 Estimated GFR 66.3 Glucose 82 Calcium 9.1 Phosphorus 4.1 Magnesium 2.1 Total Bilirubin 0.63 AST 19 ALT 24 L Alkaline Phosphatase 159 H B-Natriuretic Peptide 132.0 H Total Protein 6.6 Albumin [address] scan - head: Radiologist's impression: CT HEAD/BRAIN WO CON Date of Service: 05/11/24 HISTORY: SLURRED SPEECH, FACIAL DROOPING BOTH RESOLVEDSLURRED SPEECH, FACIAL DROOPING BOTH RESOLVED; CV/NB COMPARISON: None. TECHNIQUE: Axial non-contrast images of the head were obtained with coronal and sagittal reformats provided. Radiation dose: 1099.8 mGy-cm total DLP FINDINGS: No abnormal areas of acute attenuation in the brain parenchyma. Encephalomalacia in the left cerebellar hemisphere. Akbar-white differentiation remains intact. No intracranial, extra-axial, fluid collection. No hemorrhage. Periventricular chronic microvascular disease. No mass, mass effect or midline shift. Age related brain parenchymal global atrophy. No ventriculomegaly. No acute fracture. Sinuses are well aerated. Mastoid air cells are well aerated. Globes and intra-orbital contents are unremarkable. IMPRESSION: No acute intracranial abnormality identified. MRI - head: Radiologist's impression: MRI of the brain without contrast Date of Service: 05/12/24 HISTORY: Transient ischemic attack COMPARISON: CT of the brain without contrast May 11, 2024 TECHNIQUE: Multisequence, multi planar MR imaging of the brain was performed without contrast. FINDINGS: There is a punctate focus of diffusion restriction in the right frontoparietal watershed region on the diffusion-weighted sequence. There is no confirmatory signal dropout on the ADC map. There is T2 hyperintensity noted on the coronal sequence in this area and a small focus of gliosis is favored with T2 shine through. Otherwise, no diffusion restriction to suggest acute or subacute ischemia. The pituitary region appears appropriate. The optic chiasm is unremarkable. There is mild age-related generalized volume loss. Moderate microvascular ischemic changes are present in the periventricular white matter bilaterally. Axial gradient echo images demonstrate a focus of mineralization or hemosiderin deposition in the right temporal lobe. No hemorrhage or extra-axial collection. Appropriate ventricular size. No sinus air-fluid levels. The globes are symmetric. IMPRESSION: No sign of acute or subacute ischemia. Chronic brain findings including atrophy and microvascular ischemic change. MRA Head w/o Contrast: Radiologist's impression: MR ANGIO HEAD WO CON Date of Service: 05/12/24 HISTORY: TIATIA; CBN COMPARISON: None. TECHNIQUE: MRA images were without the administration of intravenous contrast utilizing a routine [id number] protocol.. 3D reconstructed images were created for further characterization by the technologist. FINDINGS: Anterior Circulation: Right internal carotid artery: Unremarkable. Intracranial segment is patent with no significant stenosis. No aneurysm. Right middle cerebral artery: No occlusion or significant stenosis. No aneurysm. Right anterior cerebral artery: Unremarkable. No occlusion or significant stenosis. No aneurysm. Left internal carotid artery: Unremarkable. Intracranial segment is patent with no significant stenosis. No aneurysm. Left middle cerebral artery: Unremarkable. No occlusion or significant stenosis. No aneurysm. Left anterior cerebral artery: Unremarkable. No occlusion or significant stenosis. No aneurysm. Posterior Circulation: Right vertebral artery: Unremarkable. No occlusion or significant stenosis. No aneurysm. Left vertebral artery: Unremarkable. No occlusion or significant stenosis. No aneurysm. Basilar artery: Unremarkable. No occlusion or significant stenosis. No aneurysm. Right posterior cerebral artery: Unremarkable. No occlusion or significant stenosis. No aneurysm. Left posterior cerebral artery: Unremarkable. No occlusion or significant stenosis. No aneurysm. IMPRESSION: No clinically significant stenosis, occlusion or aneurysm identified involving the intracranial arterial structures. Discharge Plan Discharge Disposition: Home, Self-Care Condition: Improved Discharge Medications: New cephalexin 500 mg Capsule 500 mg PO BID Qty: 8 0RF Continued atorvastatin 40 mg tablet 40 mg PO DAILY duloxetine 30 mg capsule,delayed release(DR/EC) 30 mg PO DAILY duloxetine 60 mg capsule,delayed release(DR/EC) 60 mg PO DAILY isosorbide mononitrate 30 mg tablet extended release 24 hr 30 mg PO DAILY levothyroxine [Synthroid] 100 mcg tablet 100 mcg PO DAILY meloxicam 7.5 mg tablet 7.5 mg PO DAILY ropinirole 4 mg tablet 4 mg PO BID valsartan 160 mg tablet 240 mg PO DAILY carvedilol 12.5 mg tablet 12.5 mg PO Q12H glimepiride 4 mg tablet 4 mg PO DAILY aspirin 81 mg capsule 81 mg PO DAILY coenzyme Q10 [Co Q-10] 10 mg capsule 10 mg PO DAILY vit C-E-zinc nr-ppql-tex-zeax 250 mg-200 unit -12.5 mg-1 mg capsule 2 cap PO DAILY cholecalciferol (vitamin D3) [Vitamin D3] 25 mcg (1,000 unit) capsule 25 mcg PO DAILY Discharge Orders: Discharge Order (Routine); Ordered 05/13/24 Ordered By: Monika Rosenthal Activity: as per physical therapy and increase activity as tolerated Diet: diabetic diet and low fat, low cholesterol Interventions: MED/SURG & ICU Observation Charge Sheet Last Done: 05/13/24 12:00 Plan of Treatment: Patient needs to increase water in her diet avoid sodas and citrus juices. Continue cranberry juice for the UTI use repeat urine and 5 days to ensure resolution of infection. Follow-up PCP early next week as well as neurology follow-up for further workup and evaluation of patient's symptoms Patient to follow-up with cardiology as an outpatient secondary to CAD and HTN. Forms: Portal/Health Info Access Inst Follow-Ups: Domenic Downs [Primary Care Provider] - 05/16/24 8:45 am Discharge Date/Time: 05/13/24 12:30
== END 2024-05-13 12:30 | disposition home or self-care (01) ==
LOC: ED 17:30 → MS 17:30
PROVIDERS: ADMIT Nurse Practitioner Family; ATTEND Family Medicine
DX: R29.810 Facial weakness; I70.209 Unspecified atherosclerosis of native arteries of extremities, unspecified extremity; E11.51 Type 2 diabetes mellitus with diabetic peripheral angiopathy without gangrene; G25.0 Essential tremor; G25.81 Restless legs syndrome; I10 Essential (primary) hypertension; N39.0 Urinary tract infection, site not specified; G45.9 Transient cerebral ischemic attack, unspecified; I25.118 Atherosclerotic heart disease of native coronary artery with other forms of angina pectoris; E86.0 Dehydration; E07.9 Disorder of thyroid, unspecified; R47.81 Slurred speech; N10 Acute pyelonephritis; R20.2 Paresthesia of skin